=== PATIENT | female | born 1995 | race Caucasian/White ===

== ENCOUNTER 2024-08-06 15:51 | Emergency (ER) | payer OTHER ==
[2024-08-06 16:01] VITALS: BP 136/94; PULSE 104; RESP 18; TEMP 98.7
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
== END 2024-08-06 17:40 | disposition left against medical advice (07) ==
LOC: EC 15:51
DX: T75.1XXA Unspecified effects of drowning and nonfatal submersion, initial encounter (principal); Z53.29 Procedure and treatment not carried out because of patient's decision for other reasons
CPT/HCPCS: 99284